=== PATIENT | female | born 1945 | race Caucasian/White ===

== ENCOUNTER 2019-06-19 06:42 | Day surgery (SDC) | payer MEDICARE, OTHER, SELFPAY ==
[2019-06-19 07:33] VITALS: BMI 45.4
--- NOTE | 2019-06-19 07:34 | ANES.PREANES ---
Pre-Anesthetic Assessment Pre-Anesthetic Assessment: Height/Weight: Height 1.5 m Weight 102.058 kg Preop Diagnosis: Hx colon cancer Proposed Procedure: Operation Date: 06/19/19 08:15 Proposed Procedures p Colonoscopy(Not Applicable) - Joseph Martin MD Familial anesthetic complications: No personal or familial hx of trouble with anesthesia Was Beta Johnson taken within 24 hours: Yes Last intake: Sips with meds this morning; last night at 1130 Social: Social History: No alcohol and No tobacco Exam: Pre-Anes Outpt Exam: alert, oriented x 3, clear to auscultation bilaterally and regular rate & rhythm Airway: Submandibular: WNL Cervical ROM: WNL MP: 4 Dentition: Full Pulmonary: Comments: Bronchospasm - uses inhaler 1x/week CV/HEM: CV/HEM: HTN : : Chronic renal Insufficiency Hepatic: Hepatic: None reported GI: Comments: hx colon cancer Metabolic: Metabolic: DM, Hyperlipidemia, Morbid obesity and Thyroid Musc/skel: Musc/skel: None reported Neuropsych: Neuropsych: None reported Anesthetic Plan: ASA status: III Anesthesia: MAC Risk of > 500 ml blood loss (7ml/kg in children): No PFSH Anesthesia PFSH: Medical History (Updated 06/19/19 @ 07:37 by Joseph Martin MD) Adult onset hypothyroidism (Acute) Chronic kidney disease, stage 3 (Acute) Constipation, slow transit (Acute) History of colon cancer (Acute) Hypercholesteremia (Acute) Type 2 diabetes mellitus with hyperglycemia, without long-term current use of insulin (Acute) Surgical History (Updated 06/19/19 @ 07:36 by Joseph Martin MD) History of colonoscopy (Acute) Colon cancer splenic flexure History of hemicolectomy (Acute) Laparoscopic left hemicolectomy 2019 History of hysterectomy (Acute) Family History (Updated 06/18/19 @ 11:10 by Rosa M Javier) Other Cancer Heart disease Hypertension Social History (Updated 06/18/19 @ 11:14 by Rosa M Javier) Smoking and tobacco status: never smoked Second hand smoke exposure: No Smoking risk assessment/counseling performed?: No Alcohol intake: never Caregiver/support person: Yes Lives independently: Yes Household members: spouse Marital status: Data Anesthesia Cardiac Studies: No Data to Display
[2019-06-19] MEDS: sodium chloride 0.9% 1,000 ML 30 ML (07:35)
--- NOTE | 2019-06-19 07:36 | PM.HPUD ---
H&P update H&P Update: DATE OF SURGERY/PROCEDURE: 06/19/19 PLANNED PROCEDURE: Operation Date: 06/19/19 08:15 Proposed Procedures p Colonoscopy(Not Applicable) - Joseph Martin MD Full H&P Perinent History: Medical/Surgical History: Medical History (Updated 06/19/19 @ 07:35 by Joseph Martin MD) Adult onset hypothyroidism (Acute) Chronic kidney disease, stage 3 (Acute) Constipation, slow transit (Acute) History of colon cancer (Acute) Hypercholesteremia (Acute) Type 2 diabetes mellitus with hyperglycemia, without long-term current use of insulin (Acute) Family History: Family History (Updated 06/18/19 @ 11:10 by Rosa M Javier) Other Cancer Heart disease Hypertension Social History: Social History Smoking and tobacco status: never smoked Second hand smoke exposure: No Smoking risk assessment/counseling performed?: No Alcohol intake: never Caregiver/support person: Yes Lives independently: Yes Household members: spouse Marital status: Pertinent Exam Findings: PHYSICAL EXAM: alert and oriented x 3 OTHER PERTINENT EXAM FINDINGS: Abdomen: Soft A&P Assessment and plan (1) History of colon cancer: Plan for surveillance colonoscopy under MAC today Procedure, risks, benefits and alternatives have been discussed with the patient who wishes to proceed with surgery. Status: Acute Code(s): Z85.038 - Personal history of other malignant neoplasm of large intestine
[2019-06-19 07:42] VITALS: BP 153/65; PULSE 78; RESP 18; TEMP 36.3; O2SAT 96
[2019-06-19 07:45] LABS: Glucose Point of Care 156 mg/dL (70-110)
[2019-06-19 08:26] VITALS: BP 128/68; PULSE 57; RESP 18; TEMP 37.2; O2SAT 99
--- NOTE | 2019-06-19 08:28 | ANE.PACU ---
 Inpatient post-anesthesia follow up: Airway intact: Yes Vital signs: Temperature 98.9 F Pulse Rate [Apical ] 57 Respiratory Rate 18 Blood Pressure [Le ft Arm] 128/68 Pulse Oximetry 99 Oxygen Delivery Me thod Nasal Cannula Oxygen Flow Rate 3.0 Fraction of Inspir ed Oxygen Hydration adequate: Yes Nausea and vomiting: No Pain level: 2 Mental status: Baseline
[2019-06-19 08:44] VITALS: BP 135/68; PULSE 54; RESP 18; O2SAT 100
== END 2019-06-19 08:50 | disposition home or self-care (01) ==
PROVIDERS: Family Provider Nurse Practitioner; PCP Nurse Practitioner; Visit Provider Surgery
PROC: 0DJD8ZZ Inspection of Lower Intestinal Tract, Via Natural or Artificial Opening Endoscopic (ICD-10-PCS; CPT 45378; principal; 2019-06-19 08:15)
DX: Z12.11 Encounter for screening for malignant neoplasm of colon (principal); Z85.038 Personal history of other malignant neoplasm of large intestine; D17.79 Benign lipomatous neoplasm of other sites; D12.3 Benign neoplasm of transverse colon; D12.8 Benign neoplasm of rectum; K64.8 Other hemorrhoids; K63.89 Other specified diseases of intestine; E03.9 Hypothyroidism, unspecified; E11.22 Type 2 diabetes mellitus with diabetic chronic kidney disease; N18.9 Chronic kidney disease, unspecified; E78.00 Pure hypercholesterolemia, unspecified; Z82.49 Family history of ischemic heart disease and other diseases of the circulatory system
CPT/HCPCS: 36416; 45380; 45385; 82962; 88305; J2704; J7030

== ENCOUNTER 2019-06-28 09:45 | Outpatient (CLI) | payer MEDICARE, OTHER, SELFPAY ==
--- NOTE | 2019-06-28 09:30 | US_ITS ---
WS: [id number] Thyroid ultrasound, 06/28/2019 Clinical Data: THYROID NODULE Comparison: Thyroid ultrasound, 01/13/2015. Findings: The right lobe of thyroid measures 5.0 cm x 1.6 cm x 1.4 cm. A small nodule in the right thyroid jerrod ures 0.49 x 0.85 x 1.13 cm. The left lobe measures 4.1 cm x 1.4 cm x 1.1 cm. A small nodule in the left mid thyroid measures 0.43 x 0.64 x 0.76 cm. The isthmus measured 0.2 mm. The echotexture of the thyroid is uniform except for scattered small cysts and nodules. US/US thyroid [id number] Impression: Multinodular goiter unchanged.
== END 2019-06-28 09:46 | disposition home or self-care (01) ==
LOC: RAD 09:46
PROVIDERS: Family Provider Nurse Practitioner; PCP Nurse Practitioner; Visit Provider Nurse Practitioner
DX: E04.2 Nontoxic multinodular goiter (principal)
CPT/HCPCS: 76536

== ENCOUNTER → 2019-08-16 13:22 | Outpatient (BNVA) | payer MEDICARE, OTHER, SELFPAY | PROVIDERS: Family Provider Nurse Practitioner; PCP Nurse Practitioner; Visit Provider Nurse Practitioner | DX: E11.65 Type 2 diabetes mellitus with hyperglycemia (principal); E03.8 Other specified hypothyroidism | CPT/HCPCS: 80053; 80061; 82044; 83036; 84443 ==

== ENCOUNTER → 2019-11-14 11:17 | Outpatient (BNVA) | payer MEDICARE, OTHER, SELFPAY | PROVIDERS: Family Provider Nurse Practitioner; PCP Nurse Practitioner; Visit Provider Nurse Practitioner | DX: E11.65 Type 2 diabetes mellitus with hyperglycemia (principal); I10 Essential (primary) hypertension; E03.8 Other specified hypothyroidism; E78.00 Pure hypercholesterolemia, unspecified | CPT/HCPCS: 80053; 83036 ==

== ENCOUNTER → 2020-02-13 11:27 | Outpatient (BNVA) | payer MEDICARE, OTHER, SELFPAY | PROVIDERS: Family Provider Nurse Practitioner; PCP Nurse Practitioner; Visit Provider Nurse Practitioner | DX: E11.65 Type 2 diabetes mellitus with hyperglycemia (principal); E03.8 Other specified hypothyroidism; I10 Essential (primary) hypertension | CPT/HCPCS: 80053; 81000; 83036; 84443 ==

== ENCOUNTER 2020-05-07 08:45 | Outpatient (CLI) | payer MEDICARE, OTHER, SELFPAY ==
[2020-05-07] MEDS: iohexol 300 mg/mL 50 mL Btl PO (10:06)
[2020-05-07 10:14] LABS: Blood Urea Nitrogen 14 mg/dL (8-23)
[2020-05-07] MEDS: iohexol 300 mg/mL 100 mL Btl IV (10:21)
--- NOTE | 2020-05-07 10:30 | CT_ITS ---
WS: [id number] CT ABDOMEN PELVIS TECHNIQUE: Contrast-enhanced CT of the abdomen and pelvis with coronal and sagittal reformatted image s. CLINICAL INFORMATION: history of colon cancer COMPARISON: CT 9 18,019 DLP: 1134.[address] scans at [facility] use at least one of these dose optimization techniques: automat ed exposure control; mA and/or kV adjustment per patient size (includes targeted exams where dose is matched to clinical indication); or iterative reconstruction. FINDINGS: Prior hysterectomy. Prior postoperative changes descending colon resection. Anastomosis in the left u pper quadrant. Diffuse fatty infiltration the liver. No evidence of metastatic disease in the abdomen or pelvis. Normal portal vein and splenic vein. Normal gallbladder. Splenic granulomas. Fatty atrophy of the rai creas. Calcified granulomas in the lung bases. Normal caliber abdominal aorta. Adrenal glands are nor mal. Normal renal parenchymal enhancement. No hydronephrosis. Small left renal cyst. No evidence of small or large bowel obstruction. No periaortic or retroperitoneal lymphadenopathy. No pelvic or inguinal lymphadenopathy. Small fat-containing supraumbilical hernia. No herniated bowel. CT/CT abdomen pelvis w con* [id number] IMPRESSION: 1. No evidence of metastatic disease in the abdomen or pelvis. 2. Prior postoperative changes left colon resection. Anastomosis in the left u pper quadrant. 3. No abdominal or pelvic lymphadenopathy. 4. No evidence of small or large bowel obstruction. 5. Prior hysterectomy. 6. Diffuse fatty infiltration liver.
== END 2020-05-07 08:46 | disposition home or self-care (01) ==
LOC: RADWPI 08:51
PROVIDERS: PCP Nurse Practitioner; Visit Provider Surgery
DX: Z85.038 Personal history of other malignant neoplasm of large intestine (principal); K76.0 Fatty (change of) liver, not elsewhere classified; K63.89 Other specified diseases of intestine
CPT/HCPCS: 74177; 82565; 84520; Q9967

== ENCOUNTER 2020-05-07 11:28 | Outpatient (CLI) | payer MEDICARE, OTHER, SELFPAY ==
[2020-05-07 12:34] LABS: Carcinoembryonic Antigen 1.3 ng/mL (0.0-4.7)
== END 2020-05-07 11:29 | disposition home or self-care (01) ==
PROVIDERS: PCP Nurse Practitioner; Visit Provider Surgery
DX: Z85.038 Personal history of other malignant neoplasm of large intestine (principal); K76.0 Fatty (change of) liver, not elsewhere classified; K63.89 Other specified diseases of intestine
CPT/HCPCS: 36415; 82378

== ENCOUNTER → 2020-05-15 12:16 | Outpatient (BNVA) | payer MEDICARE, OTHER, SELFPAY | PROVIDERS: PCP Nurse Practitioner; Visit Provider Nurse Practitioner | DX: E11.65 Type 2 diabetes mellitus with hyperglycemia (principal); I10 Essential (primary) hypertension; E03.8 Other specified hypothyroidism; Z23 Encounter for immunization; E78.00 Pure hypercholesterolemia, unspecified | CPT/HCPCS: 80053; 83036 ==

== ENCOUNTER → 2020-08-14 12:02 | Outpatient (BNVA) | payer MEDICARE, OTHER, SELFPAY | PROVIDERS: PCP Nurse Practitioner; Visit Provider Nurse Practitioner | DX: E11.65 Type 2 diabetes mellitus with hyperglycemia (principal); I10 Essential (primary) hypertension; E03.8 Other specified hypothyroidism; Z23 Encounter for immunization; E78.00 Pure hypercholesterolemia, unspecified; F41.9 Anxiety disorder, unspecified | CPT/HCPCS: 80053; 80061; 83036; 84443 ==

== ENCOUNTER → 2020-11-21 10:21 | Outpatient (BNVA) | payer MEDICARE, OTHER, SELFPAY | PROVIDERS: PCP Nurse Practitioner; Visit Provider Nurse Practitioner | DX: E11.65 Type 2 diabetes mellitus with hyperglycemia (principal); I10 Essential (primary) hypertension; E03.8 Other specified hypothyroidism; F41.9 Anxiety disorder, unspecified; E78.00 Pure hypercholesterolemia, unspecified; M54.5 Low back pain | CPT/HCPCS: 80053; 83036 ==

== ENCOUNTER 2020-12-14 22:56 | Emergency (ER) | payer MEDICARE, OTHER, SELFPAY ==
[2020-12-14 22:57] VITALS: BP 166/83; PULSE 72; RESP 18; TEMP 36.9; O2SAT 97; BMI 43.4
--- NOTE | 2020-12-15 02:47 | XRR_ITS ---
PROCEDURE INFORMATION: Exam: XR Thoracic Spine Exam date and time: 12/15/2020 2:47 AM Age: 75 years old Clinical indication: Pain in thoracic spine; Additional info: Right thoracic pain TECHNIQUE: Imaging protocol: XR of the thoracic spine. Views: 3 views. COMPARISON: CT abdomen pelvis w con* [id number] 05/07/2020 10:19 AM FINDINGS: Bones/joints: The pedicles are intact. There is normal vertebral body alignment. There are normal vertebral body heights. Large flowing endplate osteophytes are present in the lower thoracic spine. No fracture. There is mild, diffuse disc space narrowing. Soft tissues: Unremarkable. XR/XR thoracic spine 3V* [id number] IMPRESSION: 1. No fracture. 2. Mild degenerative disc disease.
--- NOTE | 2020-12-15 02:47 | XRR_ITS ---
PROCEDURE INFORMATION: Exam: XR Chest Exam date and time: 12/15/2020 2:47 AM Age: 75 years old Clinical indication: Pain; Other: Back, right; Additional info: Back pain TECHNIQUE: Imaging protocol: XR of the chest. Views: 1 view. COMPARISON: CR Chest 2 views* [id number] 04/17/2015 11:47 AM FINDINGS: Lungs: See Heart/Mediastinum finding. Pleural spaces: Unremarkable. No pleural effusion. No pneumothorax. Heart/Mediastinum: Calcified lymph nodes are present, secondary to prior granulomatous disease. Bones/joints: Unremarkable. XR/XR chest 1V portable [id number] IMPRESSION: No acute disease.
--- NOTE | 2020-12-15 02:48 | ECG_ITS ---
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
[2020-12-15 03:02] VITALS: BP 146/82
[2020-12-15 03:50] LABS: Add Urine Microscopic? YES; Bilirubin Urine Neg (Negative); Blood Urine Neg (Negative); Glucose Urine UA Norm (Normal); Ketones Urine 1+ (Negative); Leukocyte Esterase Urine Trace (Negative); Nitrate Urine Negative (Negative); Protein Urine Neg (Negative); Specific Gravity, Urine 1.025 (1.005-1.030); Urine Appearance Clear (CLEAR); Urine Color Yellow (Yellow); Urobilinogen Urine 4 mg/dL (Negative); pH Urine 5 (5-7)
[2020-12-15 03:51] LABS: Bacteria Urine 3+ /hpf; RBC Urine 0-4 /hpf (0-2)
[2020-12-15] MEDS: ondansetron 2 mg/ML SDV 2 mL 4 MG IVP (04:21)
[2020-12-15 04:42] LABS: Alanine Aminotransferase 51 U/L (0-33); Albumin Level 3.9 g/dL (3.5-5.2); Alkaline Phosphatase 310 IU/L (35-105); Anion Gap 14.1 (5-19); Aspartate Amino Transferase 126 U/L (0-32); Blood Urea Nitrogen 16 mg/dL (8-23); Carbon Dioxide 28 mmol/L (22-29); Chloride 102 mmol/L (98-107); Creatine Phosphokinase 38 U/L (26-192); Globulin 2.1 g/dL (1.3-4.6); Glucose 145 mg/dL (65-115); Lipase 22 U/L (13-60); Osmolality Calculated 294 mOsm/kg (285-295); Potassium 4.1 mmol/L (3.5-5.1); Sodium 140 mmol/L (136-145); Total Bilirubin 0.6 mg/dL (0.15-1.2)
[2020-12-15 04:43] LABS: Basophils % 0.3 %; Eosinophils % 0.4 %; Hemoglobin 12.4 g/dL (11.5-15.3); Lymphocytes # 2.2 10^3/uL (0.8-4.8); Lymphocytes % 22.6 %; Mean Corpuscular Volume 90.3 fL (81-99); Mean Platelet Volume 11.2 fL (7.4-10.4); Monocytes # 0.9 10^3/uL (0.2-0.9); Neutrophils # 6.41 10^3/uL (1.8-7.7); Neutrophils % 67.5 %; Nucleated Red Blood Cells % 0 %; Platelet Count 290 10^3/cmm (130-400); Red Blood Count 4.43 10^6/uL (4.1-5.3); Red Cell Distribution Width 13.9 % (12.1-15.1); White Blood Count 9.5 10^3/uL (4.0-10.0)
[2020-12-15 04:53] LABS: Troponin(5th) Baseline 6 ng/L (0-10)
--- NOTE | 2020-12-15 04:55 | CTR_ITS ---
PROCEDURE INFORMATION: Exam: CTA Chest With Contrast Exam date and time: 12/15/2020 4:55 AM Age: 75 years old Clinical indication: Other: RT upper back pain; Right-sided; Prior surgery; Surgery date: 6+ months; Surgery type: Hyst, colon; Additional info: Cp, epigastric pain, nausea TECHNIQUE: Imaging protocol: Computed tomographic angiography of the chest with contrast. 3D rendering (Not supervised by radiologist): MIP and/or 3D reconstructed images were created by the technologist. Radiation optimization: All CT scans at this facility use at least one of these dose optimization techniques: automated exposure control; mA and/or kV adjustment per patient size (includes targeted exams where dose is matched to clinical indication); or iterative reconstruction. Contrast material: OMNI 350; Contrast volume: 95 ml; Contrast route: INTRAVENOUS (IV); COMPARISON: CR (CHEST, ) 12/15/2020 3:29 AM RADIATION DOSE METRICS: Total DLP (mGy-cm): 1971.68 FINDINGS: Pulmonary arteries: No pulmonary embolism. Aorta: No aortic aneurysm. Lungs: Unremarkable. No consolidation. No masses. Pleural spaces: Unremarkable. No pneumothorax. No pleural effusion. Heart: Atherosclerotic coronary artery calcifications are present. Lymph nodes: Calcified lymph nodes are present, secondary to prior granulomatous disease. Bones/joints: Unremarkable. No acute fracture. Soft tissues: Unremarkable. IMPRESSION: 1. No cause for acute pain is identified. 2. No pulmonary embolism. 3. Atherosclerotic disease of the coronary arteries. PROCEDURE INFORMATION: Exam: CT Abdomen And Pelvis With Contrast Exam date and time: 12/15/2020 4:55 AM Age: 75 years old Clinical indication: Other: RT upper back pain; Right-sided; Prior surgery; Surgery date: 6+ months; Surgery type: Hyst, colon; Additional info: Cp, epigastric pain, nausea TECHNIQUE: Imaging protocol: Computed tomography of the abdomen and pelvis with contrast. Radiation optimization: All CT scans at this facility use at least one of these dose optimization techniques: automated exposure control; mA and/or kV adjustment per patient size (includes targeted exams where dose is matched to clinical indication); or iterative reconstruction. Contrast material: OMNI 350; Contrast volume: 95 ml; Contrast route: INTRAVENOUS (IV); COMPARISON: CR (CHEST, ) 12/15/2020 3:29 AM RADIATION DOSE METRICS: Total DLP (mGy-cm): 1971.68 FINDINGS: Lungs: The lung bases are clear. No effusion Liver: Normal. No mass. Gallbladder and bile ducts: No wall thickening, pericholecystic fluid or stones. Pancreas: Normal. No ductal dilation. Spleen: There are multiple calcified splenic granulomata . Adrenal glands: Normal. No mass. Kidneys and ureters: 1.5 cm left renal cyst. Stomach and bowel: Unremarkable. No obstruction. No mucosal thickening. Appendix: No evidence of appendicitis. Intraperitoneal space: Unremarkable. No free air. No significant fluid collection. Vasculature: Mild atherosclerotic disease of the aorta without aneurysm. Lymph nodes: Unremarkable. No enlarged lymph nodes. Urinary bladder: Unremarkable as visualized. Reproductive: Unremarkable as visualized. Bones/joints: Unremarkable. No acute fracture. Soft tissues: Hernia mesh anchors are present in the region of the symphysis pubis. There is a fat containing ventral hernia. CT/CT angio chest w abd pel w con IMPRESSION: 1. No cause for acute pain is identified. 2. 1.5 cm left renal cyst. 3. Mild atherosclerotic disease of the aorta without aneurysm. COMMENTS: Consistent with the [place] [employer]'s Incidental Findings Committee white paper (J Am Nat Radiol 2018): Any incidental renal lesion less than 1 cm or classified as too small to characterize, or any incidental cystic renal lesion characterized as simple-appearing, is likely benign. No follow-up imaging is recommended for these lesions per consensus recommendations based on imaging criteria. Radiation Dose CTDIVOL = (mGy): DLP = 1971.68~1971.68 (mGy-cm)
[2020-12-15] MEDS: iohexol 350 mg/mL 100 mL Btl IV (05:39)
[2020-12-15 05:56] VITALS: RESP 18; O2SAT 97
[2020-12-15] MEDS: morphine 4 mg/mL SDV 1 mL IVP (05:56)
--- NOTE | 2020-12-15 06:17 | ECG_ITS ---
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
[2020-12-15 06:58] VITALS: BP 190/91; PULSE 69; RESP 18; O2SAT 99
--- NOTE | 2020-12-15 07:06 | ED_ITS ---
HPI - Back Pain/Injury General: Chief Complaint: Back Pain/Injury Stated Complaint: BACK PAIN INTO RIGHT ARM Time Seen by Provider: 12/15/20 02:31 History of Present Illness: HPI Narrative: 75-year-old female with pain to her right mid back since 7 days ago. She said the pain is gotten worse. She had some old hydrocodone at home she had leftover from a surgery in 2018. She took these without any improvement. No fever. No cough. No real trouble breathing. The pain seems to radiate into her right arm and make it ache. MD elicited complaint: back pain Onset (ago): day(s) Timing: constant and progressively worsening Similar Symptoms Previously: No Quality: sharp, stabbing and aching Radiation: none Exacerbating factors: movement and deep breaths Relieving factors: none Associated symptoms: Reports fatigue; Deny abdominal pain, chills, difficulty walking, dysuria, fever(s), hematuria or nausea Treatments prior to arrival: cold therapy Review of Systems Const: Reports: fatigue; Denies: fever(s) or chills Eyes: Denies: change in vision ENMT: Denies: odynophagia, swelling of lips/tongue, dental pain or sinus pain Card: Reports: chest pain; Denies: palpitations, irregular heart rhythm, edema, swelling of feet/ankles, dyspnea on exertion or orthopnea Resp: Denies: dyspnea, productive cough, non-productive cough or wheezing GI: Denies: abdominal pain or nausea : Denies: dysuria or hematuria Musc: Reports: back pain; Denies: neck pain, joint redness or joint warmth Skin/Breast: Denies: rash, pruritus or erythema Neuro: Denies: difficulty walking Psych: Denies: anxiety PFSH ED PFSH: Medical History Adult onset hypothyroidism Anxiety Chronic kidney disease, stage 3 Constipation, slow transit Enrolled in chronic care management Essential (primary) hypertension History of colon cancer CT abdomen/pelvis , [facility] Apr 2020 History of colon polyps Follow-up colonoscopy in 3 years Hypercholesteremia Hypokalemia Seasonal allergies Type 2 diabetes mellitus with hyperglycemia, without long-term current use of insulin Surgical History History of colonoscopy Colon cancer splenic flexure 2018 06/2019: Cecum: Normal Ascending colon: 1 cm submucous mass consistent with a lipoma Transverse colon: 5 mm sessile polyp x4 removed with cold biopsy forceps At the colocolic anastomosis status post left hemicolectomy there was polypoid mucosa which was removed using a hot snare Sigmoid colon: Normal Rectum: 5 mm sessile polyp removed with cold biopsy forceps, internal hemorrhoids on retroflexion BERNADETTE: Internal hemorrhoids Follow-up colonoscopy 1 year History of hemicolectomy Laparoscopic left hemicolectomy 2019 History of hysterectomy Family History Other Cancer Heart disease Hypertension Social History Smoking and tobacco status: never smoked Second hand smoke exposure: No Smoking risk assessment/counseling performed?: No Alcohol intake: never Desire information about alcohol rehabilitation?: No Counseling given: No Desire information about substance/drug rehabilitation?: No Counseling given: No Adopted: No Caregiver/support person: No Lives independently: Yes Household members: spouse Housing: House Marital status: Number of children: 2 service: No Current occupational status: unemployed and retired History of recent travel: No Leisure activites: other Leisure activities details: Camping Current gender identity: Female Physical Exam Const: COMMON NORMALS: alert GENERAL APPEARANCE: frail appearing HENMT: COMMON NORMALS: normocephalic and Normal external nose present HEAD & SCALP: normocephalic FACE & SINUS: normal facial exam NOSE: Normal external nose present Chest: COMMONS NORMALS: normal inspection of the chest Resp: COMMON NORMALS: normal respiratory effort, No use of accessory muscles and clear to auscultation bilaterally AUSCULTATION: clear to auscultation bilaterally Cardio: COMMON NORMALS: regular rate and regular rhythm RATE: regular rate RHYTHM: regular rhythm GI: COMMON NORMALS: Normal to inspection, nondistended, normoactive bowel sounds present, Soft to palpation and no masses PALPATION: Yes Soft to palpation Back/Pelvis: OTHER: Examination revealed palpable and reproducible tenderness to the mid thoracic spine on the right in the paraspinal musculature along the medial scapular border at the lower part around T7. There is no increased pain on axial loading of the neck. There is no deformity. Neuro: SENSORIUM/ORIENTATION: Yes alert Course Vital Signs: Vital signs: Vital Signs Temperature 98.4 F 12/14/20 22:57 Pulse Rate 69 12/15/20 06:58 Respiratory Rate 18 12/15/20 06:58 Blood Pressure 190/91 12/15/20 06:58 Pulse Oximetry 99 12/15/20 06:58 MDM - Back Pain/Injury MDM Narrative: Medical decision making narrative: CBC is normal. BMP is essentially normal. Liver enzymes are mildly elevated, which is new for the patient. D-dimer is 600. Because of these things, CTA of the chest was ordered with abdomen pelvis as a follow-through. Neither 1 reveals a source of her pain. We will treat as musculoskeletal troponin was 6. Lab Data: Labs: Lab Results 12/15/20 12/15/20 12/15/20 Range/Units 03:10 04:11 04:11 WBC 9.5 (4.0-10.0) 10^3/ uL RBC 4.43 (4.1-5.3) 10^6/u L Hgb 12.4 (11.5-15.3) g/dL Hct 40.0 (37.0-47.0) % MCV 90.3 (81-99) fL MCH 28.0 (28.0-34.0) pg MCHC 31.0 (30.0-36.0) g/dL RDW 13.9 (12.1-15.1) % Plt Count 290 (130-400) 10^3/c mm MPV 11.2 H (7.4-10.4) fL Neut % (Auto) 67.5 % Lymph % (Auto) 22.6 % [place] % (Auto) 9.0 % Eos % (Auto) 0.4 % Baso % (Auto) 0.3 % Neut # (Auto) 6.41 (1.8-7.7) 10^3/u L Lymph # (Auto) 2.2 (0.8-4.8) 10^3/u L [place] # (Auto) 0.9 (0.2-0.9) 10^3/u L Eos # (Auto) 0.0 (0.0-0.8) 10^3/u L Baso # (Auto) 0.0 (0.0-0.1) 10^3/u L Nucleated RBC % (a uto) 0 % Nucleated RBCs # 0.0 /100WBC D-Dimer 0.60 H (0-0.59) ug/mIFE U Sodium (136-145) mmol/L Potassium (3.5-5.1) mmol/L Chloride (98-107) mmol/L Carbon Dioxide (22-29) mmol/L Anion Gap (5-19) BUN (8-23) mg/dL Creatinine (0.5-0.9) mg/dL GFR Calculation Glucose (65-115) mg/dL Calculated Osmolal ity (285-295) mOsm/k g Calcium (8.5-10.5) mg/dL Total Bilirubin (0.15-1.2) mg/dL AST (0-32) U/L ALT (0-33) U/L Alkaline Phosphata se (35-105) IU/L Creatine Kinase (26-192) U/L Troponin T Baselin e (0-10) ng/L Total Protein (6.6-8.7) g/dL Albumin (3.5-5.2) g/dL Globulin (1.3-4.6) g/dL Lipase (13-60) U/L Urine Color Yellow (Yellow) Urine Appearance Clear (CLEAR) Urine pH 5 (5-7) Ur Specific Gravit y 1.025 (1.005-1.030) Urine Protein Neg (Negative) Urine Glucose (UA) Norm (Normal) Urine Ketones 1+ H (Negative) Urine Blood Neg (Negative) Urine Nitrate Negative (Negative) Urine Bilirubin Neg (Negative) Urine Urobilinogen 4 H (Negative) mg/dL Ur Leukocyte Celina ase Trace H (Negative) Urine RBC 0-4 H (0-2) /hpf Urine WBC 10-15 H (0-5) /hpf Ur Squamous Epith Cells 5-10 H (0-5) /hpf Amorphous Sediment Not Reportable Urine Bacteria 3+ H (NONE) /hpf 12/15/20 12/15/20 Range/Units 04:11 04:11 WBC (4.0-10.0) 10^3/ uL RBC (4.1-5.3) 10^6/u L Hgb (11.5-15.3) g/dL Hct (37.0-47.0) % MCV (81-99) fL MCH (28.0-34.0) pg MCHC (30.0-36.0) g/dL RDW (12.1-15.1) % Plt Count (130-400) 10^3/c mm MPV (7.4-10.4) fL Neut % (Auto) % Lymph % (Auto) % [place] % (Auto) % Eos % (Auto) % Baso % (Auto) % Neut # (Auto) (1.8-7.7) 10^3/u L Lymph # (Auto) (0.8-4.8) 10^3/u L [place] # (Auto) (0.2-0.9) 10^3/u L Eos # (Auto) (0.0-0.8) 10^3/u L Baso # (Auto) (0.0-0.1) 10^3/u L Nucleated RBC % (a uto) % Nucleated RBCs # /100WBC D-Dimer (0-0.59) ug/mIFE U Sodium 140 (136-145) mmol/L Potassium 4.1 (3.5-5.1) mmol/L Chloride 102 (98-107) mmol/L Carbon Dioxide 28 (22-29) mmol/L Anion Gap 14.1 (5-19) BUN 16 (8-23) mg/dL Creatinine 0.7 (0.5-0.9) mg/dL GFR Calculation Not Reportable Glucose 145 H (65-115) mg/dL Calculated Osmolal ity 294 (285-295) mOsm/k g Calcium 9.0 (8.5-10.5) mg/dL Total Bilirubin 0.6 (0.15-1.2) mg/dL AST 126 H (0-32) U/L ALT 51 H (0-33) U/L Alkaline Phosphata se 310 H (35-105) IU/L Creatine Kinase 38 (26-192) U/L Troponin T Baselin e 6 (0-10) ng/L Total Protein 6.0 L (6.6-8.7) g/dL Albumin 3.9 (3.5-5.2) g/dL Globulin 2.1 (1.3-4.6) g/dL Lipase 22 (13-60) U/L Urine Color (Yellow) Urine Appearance (CLEAR) Urine pH (5-7) Ur Specific Gravit y (1.005-1.030) Urine Protein (Negative) Urine Glucose (UA) (Normal) Urine Ketones (Negative) Urine Blood (Negative) Urine Nitrate (Negative) Urine Bilirubin (Negative) Urine Urobilinogen (Negative) mg/dL Ur Leukocyte Celina ase (Negative) Urine RBC (0-2) /hpf Urine WBC (0-5) /hpf Ur Squamous Epith Cells (0-5) /hpf Amorphous Sediment Urine Bacteria (NONE) /hpf Discharge Plan Discharge Patient Disposition: Home Clinical Impression: Thoracic back pain Qualifiers: Chronicity: acute Back pain laterality: right Qualified Code(s): M54.6 - Pain in thoracic spine Condition: Stable Prescriptions: New ketorolac 10 mg tablet 10 mg PO TID PRN (Reason: pain) Qty: 10 RF: 0 Percocet 7.5-325 mg tablet 1 tab PO Q6H PRN (Reason: pain) Qty: 10 RF: 0 No Action Trulicity 0.75 mg/0.5 mL pen injector 0.75 mg SUBCUT .weekly Qty: 2 RF: 1 levothyroxine 50 mcg tablet 50 mcg PO DAILY Qty: 90 RF: 0 losartan 50 mg tablet 50 mg PO DAILY Qty: 90 RF: 0 metformin 500 mg tablet extended release 24 hr 1,000 mg PO DAILY Qty: 180 RF: 0 metoprolol tartrate 50 mg tablet 50 mg PO BID Qty: 180 RF: 0 potassium chloride 10 mEq tablet extended release 10 meq PO DAILY Qty: 90 RF: 0 rosuvastatin [Crestor] 40 mg tablet 40 mg PO DAILY Qty: 90 RF: 0 venlafaxine [Effexor XR] 75 mg capsule,extended release 24hr 75 mg PO QAM Qty: 90 RF: 0 furosemide 20 mg tablet 40 mg PO DAILY PRN (Reason: edema) Qty: 180 RF: 0 aspirin 81 mg tablet,delayed release (DR/EC) 81 mg PO DAILY RF: 0 albuterol sulfate [Ventolin HFA] 90 mcg/actuation HFA aerosol inhaler 2 inh INHALATION TID RF: 0 cholecalciferol (vitamin D3) 1,000 unit Capsule 1,000 unit PO DAILY RF: 0 Centrum Silver 1 tab PO DAILY RF: 0 Fish Oil 1,000 mg PO BID RF: 0 Zyrtec 10 mg PO DAILY RF: 0 Discharge Orders: Discharge ED (Routine); Ordered 12/15/20 Ordered By: Salas Singleton Referrals: Andrzej Grey, CUSTOMER COMPLAINT SERVICE SUPERVISOR-C [Primary Care Provider] - 1-3 days Patient Instructions: Back Pain (ED) Activity Restrictions/Additional Instructions: Return for fever greater than 100, shortness of breath, change in mental status, worsening pain despite treatment, other concerning symptoms peer Coding Level of Care Code ED 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
== END 2020-12-15 07:01 | disposition home or self-care (01) ==
PROVIDERS: Emergency Provider Emergency Medicine; PCP Nurse Practitioner
DX: M54.6 Pain in thoracic spine (principal); Z79.84 Long term (current) use of oral hypoglycemic drugs; Z79.82 Long term (current) use of aspirin
CPT/HCPCS: 71045; 71275; 72072; 74177; 80053; 81001; 82550; 83690; 84484; 85025; 85378; 93005; 96374; 96375; 99284; J2270; J2405; Q9967

== ENCOUNTER → 2021-02-13 11:05 | Outpatient (BNVA) | payer MEDICARE, OTHER, SELFPAY | PROVIDERS: PCP Nurse Practitioner; Visit Provider Nurse Practitioner | DX: I10 Essential (primary) hypertension (principal); E03.8 Other specified hypothyroidism; E11.65 Type 2 diabetes mellitus with hyperglycemia; F41.9 Anxiety disorder, unspecified; E78.00 Pure hypercholesterolemia, unspecified; E55.9 Vitamin D deficiency, unspecified | CPT/HCPCS: 80053; 80061; 81000; 82306; 83036; 84443 ==

== ENCOUNTER → 2021-05-13 11:49 | Outpatient (BNVA) | payer MEDICARE, OTHER, SELFPAY | PROVIDERS: PCP Nurse Practitioner; Visit Provider Nurse Practitioner | DX: E11.65 Type 2 diabetes mellitus with hyperglycemia (principal) | CPT/HCPCS: 80053; 83036 ==

== ENCOUNTER → 2021-08-05 08:22 | Outpatient (BNVA) | payer MEDICARE, OTHER, SELFPAY | PROVIDERS: PCP Nurse Practitioner; Visit Provider Nurse Practitioner | DX: E11.65 Type 2 diabetes mellitus with hyperglycemia (principal); I10 Essential (primary) hypertension | CPT/HCPCS: 80053; 80061; 81000; 83036; 84443 ==

== ENCOUNTER → 2021-09-02 11:17 | Outpatient (BNVA) | payer MEDICARE, OTHER, SELFPAY | PROVIDERS: PCP Nurse Practitioner; Visit Provider Nurse Practitioner Family | DX: R05.9 Cough, unspecified (principal); R06.02 Shortness of breath; J98.8 Other specified respiratory disorders | CPT/HCPCS: 71046; 87635; 87801 ==

== ENCOUNTER 2021-09-10 10:28 | Emergency (ER) | payer MEDICARE, OTHER, SELFPAY ==
[2021-09-10 10:37] VITALS: BP 133/84; PULSE 70; RESP 14; TEMP 36.6; O2SAT 98; BMI 42.6
[2021-09-10 10:43] VITALS: RESP 16; O2SAT 98
--- NOTE | 2021-09-10 10:55 | ED_ITS ---
HPI - Fall General: Chief Complaint: Fall Stated Complaint: Fell and Hit head, Time Seen by Provider: 09/10/21 10:44 Source: patient and family Mode of arrival: ambulatory Limitations: no limitations History of Present Illness: Patient is a nice 76-year-old female who presents to ED today along with her for evaluation following a fall/head injury. Patient states 2 days ago she was in her crafting chair when it accidentally overturned causing her to fall backwards and struck the posterior aspect of her head. No LOC. Patient is not on anticoagulation. She does state afterwards she felt a little dizzy but states this has improved. She did later develop a headache but states this is slowly improved as well. Patient states she sought medical evaluation today because she still feels a little swimmy . She states she is able to ambulate just fine without assistance. states she was able to drive herself to the ED. she is not having any numbness, tingling, weakness to her extremities. No facial drooping or slurred speech. No visual changes. states mental status has been normal at home. She also does complain of a little bit of neck pain. No other injuries or complaints at this time. MD complaint: fall Onset (ago): day(s) Fall from: chair Fall witnessed: no Place fall occurred: home Loss of consciousness: None Prolonged down time: no Symptoms prior to fall: none Context: tripped/slipped (chair overtipped) Location of injury: head and neck Associated symptoms-after fall: Reports headache(s) (improved since fall) and neck pain; Denies chest pain, confusion, difficulty walking, lightheadedness or vertigo Review of Systems Const: Denies: fever(s), chills, body aches, fatigue or malaise Eyes: Denies: change in vision, blurry vision, floaters or seeing flashes Card: Denies: chest pain, palpitations, lightheadedness, syncope or pre- syncope Resp: Denies: dyspnea GI: Denies: nausea or vomiting Musc: Reports: neck pain; Denies: back pain, extremity pain or joint pain Skin/Breast: Denies: rash Neuro: Reports: headache(s) (improved since fall); Denies: numbness in extremities, weakness in extremities, sensory changes, difficulty walking, frequent falls, vertigo, confusion, behavioral changes, Slurred speech present, difficulty communicating thoughts or seizure-like activity PFSH ED PFSH: Medical History Adult onset hypothyroidism Anxiety Chronic kidney disease, stage 3 Constipation, slow transit Enrolled in chronic care management Essential (primary) hypertension History of colon cancer CT abdomen/pelvis , CEA Apr 2020 History of colon polyps Follow-up colonoscopy in 3 years Hypercholesteremia Hypokalemia Seasonal allergies Type 2 diabetes mellitus with hyperglycemia, without long-term current use of insulin Surgical History History of colonoscopy Colon cancer splenic flexure 06/2019: Cecum: Normal Ascending colon: 1 cm submucous mass consistent with a lipoma Transverse colon: 5 mm sessile polyp x4 removed with cold biopsy forceps At the colocolic anastomosis status post left hemicolectomy there was polypoid mucosa which was removed using a hot snare Sigmoid colon: Normal Rectum: 5 mm sessile polyp removed with cold biopsy forceps, internal hemorrhoids on retroflexion BERNADETTE: Internal hemorrhoids Follow-up colonoscopy 1 year History of hemicolectomy Laparoscopic left hemicolectomy 2018 History of hysterectomy Family History Other Cancer Heart disease Hypertension Social History Smoking and tobacco status: never smoked Second hand smoke exposure: No Smoking risk assessment/counseling performed?: No Alcohol intake: never Desire information about alcohol rehabilitation?: No Counseling given: No Desire information about substance/drug rehabilitation?: No Counseling given: No Adopted: No Caregiver/support person: No Lives independently: Yes Household members: spouse Housing: House Marital status: Number of children: 2 service: No Current occupational status: unemployed and retired History of recent travel: No Leisure activites: other Leisure activities details: Camping Current gender identity: Female Physical Exam Const: COMMON NORMALS: no acute distress, patient oriented x3, no limitations and alert GENERAL APPEARANCE: cooperative NUTRITIONAL APPEARANCE: overwei ght ORIENTATION/CONSCIOUSNESS: Yes awake, Yes oriented to person, Yes oriented to place and Yes oriented to time HENMT: COMMON NORMALS: normocephalic and atraumatic HEAD & SCALP: normal to inspection, normocephalic and atraumatic FACE & SINUS: normal facial exam Eye: GENERAL EYE: appearance normal, both eyes and all related structures Neck/C-Spine: COMMON NORMALS: full ROM CERVICAL SPINE: Yes cervical ROM normal, No pain with cervical ROM, No Cervical spine tenderness, No step off deformity and No Paracervical muscle tenderness Chest: COMMONS NORMALS: normal inspection of the chest and normal palpation of entire chest wall Resp: COMMON NORMALS: normal respiratory effort and clear to auscultation bilaterally AUSCULTATION: clear to auscultation bilaterally Cardio: COMMON NORMALS: regular rate and regular rhythm RATE: regular rate RHYTHM: regular rhythm GI: COMMON NORMALS: Normal to inspection, nondistended, normoactive bowel sounds present, Soft to palpation and non-tender PALPATION: Yes Soft to palpation Back/Pelvis: COMMON NORMALS: thoracic and lumbar spine normal to inspection, no thoracic nor lumbar tenderness and thoraco-lumbar ROM normal Extremity: COMMON NORMALS: normal to inspection and full ROM GENERAL: Yes normal exam except as noted Neuro: LILA COMA SCALE: document GCS findings Lila coma scale eye opening: Spontaneous Lila coma scale verbal response: Orientated Lila coma scale motor response: Obey commands [place] coma scale total score: 15 COMMON NORMALS: patient oriented x3, CN's II-XII intact bilaterally, moves all extremities, no focal motor deficits, no sensory deficits noted and gait normal SENSORIUM/ORIENTATION: Yes alert, Yes oriented to person, Yes oriented to place and Yes oriented to time Skin: COMMON NORMALS: no rashes or lesions noted GENERAL SKIN EXAM: no rashes or lesions noted Course Vital Signs: Vital signs: Vital Signs Temperature 97.8 F 09/10/21 10:37 Pulse Rate 70 09/10/21 10:37 Respiratory Rate 14 09/10/21 10:37 Blood Pressure 133/84 09/10/21 10:37 Pulse Oximetry 98 09/10/21 10:37 MDM - Fall Medical Decision Making CT head/cervical spine negative. No acute neurological deficits here. Patient will be allowed discharge with return precautions. Lab Data Radiology Impressions Cervical Spine CT 09/10/21 10:55 IMPRESSION: No acute cervical spine fracture. Moderate spondylitic changes at C6-7 mild encroachment on the ventral thecal sac and foramina due to osteophyte disease. Head CT 09/10/21 10:55 IMPRESSION: 1. No acute intracranial hemorrhage or edema. 2. Mild atrophy and small vessel ischemic disease. 3. No skull fracture. Discharge Plan Discharge Patient Disposition: Home Clinical Impression: Minor head injury without loss of consciousness Qualifiers: Encounter type: initial encounter Qualified Code(s): S09.90XA - Unspecified injury of head, initial encounter Condition: Stable Prescriptions: No Action furosemide 20 mg tablet 40 mg PO DAILY PRN (Reason: edema) Qty: 180 0RF levothyroxine 50 mcg tablet 50 mcg PO DAILY Qty: 90 0RF losartan 50 mg tablet 50 mg PO DAILY Qty: 90 0RF metformin 500 mg tablet extended release 24 hr 1,000 mg PO DAILY Qty: 180 0RF metoprolol tartrate 50 mg tablet 50 mg PO BID Qty: 180 0RF potassium chloride 10 mEq tablet extended release 10 meq PO DAILY Qty: 90 0RF rosuvastatin [Crestor] 40 mg tablet 40 mg PO DAILY Qty: 90 0RF Trulicity 0.75 mg/0.5 mL pen injector 0.75 mg SUBCUT .weekly Qty: 8 4RF Rx Instructions: 340B venlafaxine [Effexor XR] 75 mg capsule,extended release 24hr 75 mg PO QAM Qty: 90 0RF (DME) nebulizer accessories Kit See Rx Instructions .Route Qty: 1 0RF Rx Instructions: As directed (DME) compressor, for nebulizer Device See Rx Instructions .Route Qty: 1 0RF Rx Instructions: As directed albuterol sulfate 2.5 mg /3 mL (0.083 %) solution for nebulization 2.5 mg inhalation QID PRN (Reason: shortness of breath or wheezing) Qty: 75 0RF prednisone 20 mg tablet 20 mg PO BID Qty: 10 0RF doxycycline hyclate 100 mg tablet 100 mg PO BID Qty: 14 0RF aspirin 81 mg tablet,delayed release (DR/EC) 81 mg PO DAILY 0RF albuterol sulfate [Ventolin HFA] 90 mcg/actuation HFA aerosol inhaler 2 inh INHALATION TID 0RF cholecalciferol (vitamin D3) 1,000 unit Capsule 1,000 unit PO DAILY 0RF Centrum Silver 1 tab PO DAILY 0RF Fish Oil 1,000 mg PO BID 0RF Zyrtec 10 mg PO DAILY 0RF Discharge Orders: Discharge ED (Routine); Ordered 09/10/21 Ordered By: Radha Trent Referrals: Andrzej Grey, SYSTEM PROGRAMMER-C [Primary Care Provider] - Patient Instructions: Head Injury (ED) Activity Restrictions/Additional Instructions: As we discussed monitor symptoms closely at home. You need to return to the emergency department for severe headache, trouble walking/ambulating/problems with gait, visual changes, numbness or weakness to your arms or legs, altered mental status, repetitive episodes of vomiting, or any other concerns you may have. 

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
== END 2021-09-10 11:50 | disposition home or self-care (01) ==
PROVIDERS: Emergency Provider Physician Assistant; PCP Nurse Practitioner
DX: S09.8XXA Other specified injuries of head, initial encounter (principal); W07.XXXA Fall from chair, initial encounter
CPT/HCPCS: 70450; 72125; 99282

== ENCOUNTER → 2021-11-26 10:35 | Outpatient (BNVA) | payer MEDICARE, OTHER, SELFPAY | PROVIDERS: PCP Nurse Practitioner; Visit Provider Nurse Practitioner | DX: I10 Essential (primary) hypertension (principal); E11.65 Type 2 diabetes mellitus with hyperglycemia; F41.9 Anxiety disorder, unspecified | CPT/HCPCS: 80053; 83036; 84443 ==

== ENCOUNTER 2021-12-11 18:59 | Emergency (ER) | payer MEDICARE, OTHER, SELFPAY ==
[2021-12-11 19:23] VITALS: BP 159/94; PULSE 69; RESP 16; TEMP 36.1; O2SAT 97
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
[2021-12-11 22:01] VITALS: BP 148/105; PULSE 69; RESP 19; TEMP 37.1; O2SAT 95
== END 2021-12-11 23:50 | disposition home or self-care (01) ==
PROVIDERS: Emergency Provider Physician Assistant; PCP Nurse Practitioner
DX: S13.4XXA Sprain of ligaments of cervical spine, initial encounter (principal); M54.6 Pain in thoracic spine; Z79.899 Other long term (current) drug therapy; Z79.84 Long term (current) use of oral hypoglycemic drugs; Z79.82 Long term (current) use of aspirin; E11.22 Type 2 diabetes mellitus with diabetic chronic kidney disease; I12.9 Hypertensive chronic kidney disease with stage 1 through stage 4 chronic kidney disease, or unspecified chronic kidney disease; N18.30 Chronic kidney disease, stage 3 unspecified; Z85.038 Personal history of other malignant neoplasm of large intestine; V89.2XXA Person injured in unspecified motor-vehicle accident, traffic, initial encounter
CPT/HCPCS: 70450; 72125; 72128; 99283

== ENCOUNTER 2022-01-12 06:00 | Outpatient (RCR) | payer MEDICARE, OTHER, SELFPAY | END 2022-02-10 23:59 | disposition home or self-care (01) | LOC: TPT 06:00 | PROVIDERS: PCP Nurse Practitioner; Referring Provider Nurse Practitioner; Visit Provider Nurse Practitioner | DX: M51.24 Other intervertebral disc displacement, thoracic region (principal) | CPT/HCPCS: 97110; 97162 ==

== ENCOUNTER 2022-01-27 12:37 | Outpatient (CLI) | payer MEDICARE, OTHER, SELFPAY ==
--- NOTE | 2022-01-27 13:00 | CT_ITS ---
WS: [id number] CT ABDOMEN PELVIS TECHNIQUE: Noncontrast CT of the abdomen and pelvis with coronal and sagittal reformatted images. CLINICAL INFORMATION: Z85.038 - Personal history of other malignant neoplasm of... COMPARISON: CT abdomen pelvis May 07, 2020 DLP: 1238.[address] scans at [facility] use at least one of these dose optimization techniques: automated e xposure control; mA and/or kV adjustment per patient size (includes targeted exams where dose is matc hed to clinical indication); or iterative reconstruction. FINDINGS:Distended stomach with air-fluid levels with fluid products. Diffuse abnormal transmural enh ancing gastric wall thickening. This results in luminal narrowing and mild gastric outlet obstruction .Diffuse induration in the upper abdominal peritoneum suspicious for peritoneal carcinomatosis. Diffu se transmural gastric thickening worse involving the antrum and pylorus. Diffuse nodularity in the up per abdominal peritoneum about the stomach suspicious for peritoneal carcinomatosis. Largest nodule m easures 10 mm. Small amount of fluid in the rose mary hepatis. Small amount of perihepatic and perisplenic fluid. Small amount of fluid in the LEFT upper quadrant. Small amount of free fluid in the pelvis. Prior postoperative changes LEFT hemicolectomy with anastom osis in the LEFT upper quadrant. Diffuse fatty infiltration of the liver. Mild hepatomegaly. Calcifie d granuloma RIGHT lower lobe. Tiny bilateral pleural effusions LEFT greater than RIGHT. Partially vis ualized nodule in the RIGHT middle lobe measuring 5 mm. Hepatic granulomas. Splenic granulomas. Fatty atrophy of the pancreas. Adrenal glands are normal. No hydronephrosis in either kidney. Normal caliber abdominal aorta. Aortic calcification. Tiny gallstone. Prior hysterectomy. Small fat-containing supra umbilical hernia. CT/CT abdomen pelvis wo con [id number] IMPRESSION: Contrast not administered 1. Diffuse transmural gastric thickening with luminal narrowing worse involvin g the antrum and pylorus. Air-fluid level in the stomach with mild obstruction. Findings suspicious for neoplasm or metastatic disease. 2. Diffuse surrounding suspected peritoneal carcinomatosis in the upper abdomi nal surrounding peritoneum about the stomach. Associated nodularity with larges t nodule measuring 10 mm. 3. Small amount of perihepatic and perisplenic fluid. Small amount of fluid in the LEFT upper quadrant extending into the LEFT pericolic gutter. Small amount of free fluid in the pelvis. 4. Tiny LEFT greater than RIGHT pleural effusions. 5. Partially visualized nodule in the RIGHT middle lobe measuring 5 mm. 6. Prior LEFT hemicolectomy and hysterectomy. 7. Tiny calcified gallstone in the dependent gallbladder. Small amount of flui d in the gallbladder fossa most likely related to hepatic congestion. 8. Mild hepatomegaly. Notified JENNIFER Love at 01/27/2022 2:10 PM.
[2022-01-27 13:16] LABS: Basophils % 0.4 %; Eosinophils # 0.2 10^3/uL (0.0-0.8); Eosinophils % 1.8 %; Hematocrit 44.4 % (37.0-47.0); Hemoglobin 13.8 g/dL (11.5-15.3); Lymphocytes # 1.5 10^3/uL (0.8-4.8); Lymphocytes % 14.5 %; Mean Corpuscular HGB Conc 31.1 g/dL (30.0-36.0); Mean Corpuscular Hemoglobin 27.4 pg (28.0-34.0); Mean Corpuscular Volume 88.1 fl (81-99); Mean Platelet Volume 10.8 fL (7.4-10.4); Monocytes # 0.9 10^3/uL (0.2-0.9); Monocytes % 8.5 %; Neutrophils # 7.45 10^3/uL (1.8-7.7); Neutrophils % 74.4 %; Nucleated Red Blood Cells % 0 %; Platelet Count 385 10^3/cmm (130-400); Red Blood Count 5.04 10^6/uL (4.1-5.3); Red Cell Distribution Width 14.6 % (12.1-15.1)
[2022-01-27 13:24] LABS: Blood Urine Neg (Negative); Glucose Urine UA Norm (Normal); Ketones Urine 1+ (Negative); Nitrate Urine Negative (Negative); Protein Urine 1+ (Negative); Urine Appearance Clear (CLEAR); Urine Color Yellow (Yellow); pH Urine 5 (5-7)
[2022-01-27 13:25] LABS: Add Urine Microscopic? YES; Bilirubin Urine 1+ (Negative); Leukocyte Esterase Urine 1+ (Negative); Urobilinogen Urine 1 mg/dL (Negative)
[2022-01-27 13:30] LABS: RBC Urine 0-4 /hpf (0-2); Squamous Epithelial Cell Urine 0-4 /hpf (0-5)
[2022-01-27 13:31] LABS: Add Urine Culture? Yes; Bacteria Urine 1+ /hpf; Calcium Oxalate Crystals Urine 2 /hpf; Hyaline Casts Urine 0-4 /lpf
[2022-01-27 13:32] LABS: Alanine Aminotransferase 12 U/L (0-33); Albumin Level 3.6 g/dL (3.5-5.2); Alkaline Phosphatase 103 U/L (35-105); Anion Gap 15.4 (5-19); Aspartate Amino Transferase 19 U/L (0-32); Blood Urea Nitrogen 14 mg/dL (8-23); Calcium 9.6 mg/dL (8.5-10.5); Carbon Dioxide 29 mmol/L (22-29); Chloride 99 mmol/L (98-107); Globulin 2.3 g/dL (1.3-4.6); Glucose 110 mg/dL (65-115); Osmolality Calculated 289 mOsm/kg (285-295); Potassium 4.4 mmol/L (3.5-5.1); Sodium 139 mmol/L (136-145); Total Bilirubin 0.3 mg/dL (0.15-1.2); Total Protein 5.9 g/dL (6.6-8.7)
== END 2022-01-27 12:38 | disposition home or self-care (01) ==
LOC: RAD 12:38
PROVIDERS: PCP Nurse Practitioner; Visit Provider Nurse Practitioner
DX: Z85.038 Personal history of other malignant neoplasm of large intestine (principal); R16.0 Hepatomegaly, not elsewhere classified; K80.80 Other cholelithiasis without obstruction; Z90.49 Acquired absence of other specified parts of digestive tract; Z90.710 Acquired absence of both cervix and uterus; J90 Pleural effusion, not elsewhere classified
CPT/HCPCS: 74176; 80053; 81001; 85025; 87086

== ENCOUNTER 2022-01-29 18:50 | Emergency (ER) | payer MEDICARE, OTHER, SELFPAY ==
[2022-01-29 19:06] VITALS: BP 123/84; PULSE 85; RESP 20; TEMP 37.2; O2SAT 94; BMI 42.6
[2022-01-29] MEDS: tetracaine 0.5% Op Soln 4 mL Btl 1 DROP EYE-RIGHT (22:05)
--- NOTE | 2022-01-29 23:08 | ED_ITS ---
HPI - Eye Problem General: Chief complaint: Eye Problems Stated complaint: Eye Pain due to Shots in them today Time Seen by Provider: 01/29/22 22:04 Source: patient and family History of Present Illness: 76-year-old lady with macular degeneration. She received injections for this in the right eye today. She shut her eyes on the way home, and dozed off, and when she awoke, noticed that she had intense pain to the right eye. There is mild blurred vision. She has not had this severe symptoms after injection prior. There is no drainage. No bleeding. No increased redness. chief complaint: eye pain Onset (ago): hour(s) Onset description: sudden Duration: constant and improved Location: right eye Eye Symptoms: burning and pain Place: other Mechanism: other Severity: moderate If Pain, Quality: burning Context: recent eye procedure Associated symptoms: Denies cough, fever(s), headache(s), nausea, neck pain, nu mbness, rhinorrhea, short of breath or vomiting Treatments Prior to Arrival: none Review of Systems Const: Denies: fever(s) ENMT: Denies: throat pain Card: Denies: chest pain Resp: Denies: dyspnea GI: Denies: nausea or vomiting Musc: Denies: neck pain Neuro: Denies: headache(s) PFS ED PFSH: Medical History Adult onset hypothyroidism Anxiety Chronic kidney disease, stage 3 Constipation, slow transit Enrolled in chronic care management Essential (primary) hypertension History of colon cancer Colon resection 2017, CEA Apr 2020 History of colon polyps Follow-up colonoscopy in 3 years Hypercholesteremia Hypokalemia Seasonal allergies Type 2 diabetes mellitus with hyperglycemia, without long-term current use of insulin Surgical History History of colonoscopy Colon cancer splenic flexure 06/2019: Cecum: Normal Ascending colon: 1 cm submucous mass consistent with a lipoma Transverse colon: 5 mm sessile polyp x4 removed with cold biopsy forceps At the colocolic anastomosis status post left hemicolectomy there was polypoid mucosa which was removed using a hot snare Sigmoid colon: Normal Rectum: 5 mm sessile polyp removed with cold biopsy forceps, internal hemorrhoids on retroflexion BERNADETTE: Internal hemorrhoids Follow-up colonoscopy 1 year History of hemicolectomy Laparoscopic left hemicolectomy 2019 History of hysterectomy Family History Other Cancer Heart disease Hypertension Social History Smoking and tobacco status: never smoked Second hand smoke exposure: No Smoking risk assessment/counseling performed?: No Alcohol intake: never Desire information about alcohol rehabilitation?: No Counseling given: No Desire information about substance/drug rehabilitation?: No Counseling given: No Adopted: No Caregiver/support person: No Lives independently: Yes Household members: spouse Housing: House Marital status: Number of children: 2 service: No Current occupational status: unemployed and retired History of recent travel: No Leisure activites: other Leisure activities details: Camping Current gender identity: Female Physical Exam HENMT: COMMON NORMALS: normocephalic, atraumatic and Normal external nose present HEAD & SCALP: normocephalic and atraumatic FACE & SINUS: normal facial exam and face symmetric NOSE: Normal external nose present Eye: COMMON NORMALS: Equal, round and reactive pupils present and EOMs intact bilaterally VISUAL ACUITY: Yes visual acuity right eye (Intact) ALIGNMENT: Yes alignment normal EYELID: eyelids normal CONJUNCTIVA: Yes conjunctival abnormal positive right conjunctival injection (Mild) PUPIL: Yes Equal, round and reactive pupils present DIRECT OPHTHALMOSCOPY: Yes anterior chamber normal Chest: CHEST: Yes Symmetrical chest wall rise Resp: COMMON NORMALS: normal respiratory effort Cardio: COMMON NORMALS: regular rate and regular rhythm RATE: regular rate RHYTHM: regular rhythm Neuro: LILA COMA SCALE: document GCS findings [place] coma scale eye opening: Spontaneous [place] coma scale verbal response: Orientated [place] coma scale motor response: Obey commands Lila coma scale total score: 15 CRANIAL NERVES: Yes CN normal except as noted Course Vital Signs: Vital signs: Vital Signs Temperature 98.9 F 01/29/22 19:06 Pulse Rate 85 01/29/22 19:06 Respiratory Rate 20 H 01/29/22 19:06 Blood Pressure 123/84 01/29/22 19:06 Pulse Oximetry 94 01/29/22 19:06 Oxygen Delivery Me thod 01/29/22 19:06 MDM - Eye Problem Medical Decision Making Pain improved essentially immediately with tetracaine application. Evidently, we do not have a Ruiz lamp in the ER currently, and cannot further examine her eye. Obviously this is not angle-closure glaucoma, as she improved significantly with tetracaine nearly immediately. She will be placed on Toradol drops for pain, and asked to follow-up with her surgeon on Tuesday Discharge Plan Discharge Patient Disposition: Home Clinical Impression: Corneal abrasion Condition: Stable Prescriptions: No Action levothyroxine 50 mcg tablet 50 mcg PO DAILY Qty: 90 0RF rosuvastatin [Crestor] 40 mg tablet 40 mg PO DAILY Qty: 90 0RF (DME) nebulizer accessories Kit See Rx Instructions .Route Qty: 1 0RF Rx Instructions: As directed (DME) compressor, for nebulizer Device See Rx Instructions .Route Qty: 1 0RF Rx Instructions: As directed albuterol sulfate 2.5 mg /3 mL (0.083 %) solution for nebulization 2.5 mg inhalation QID PRN (Reason: shortness of breath or wheezing) Qty: 75 0RF methocarbamol 750 mg tablet 750 mg PO .2 times day Qty: 60 0RF Hold Instructions: Doctor's Order furosemide 20 mg tablet 40 mg PO DAILY PRN (Reason: edema) Qty: 180 0RF losartan 50 mg tablet 50 mg PO DAILY Qty: 90 0RF metformin 500 mg tablet extended release 24 hr 1,000 mg PO DAILY Qty: 180 0RF Hold Instructions: Doctor's Order metoprolol tartrate 50 mg tablet 50 mg PO BID Qty: 180 0RF potassium chloride 10 mEq tablet extended release 10 meq PO DAILY Qty: 90 0RF Trulicity 0.75 mg/0.5 mL pen injector 0.75 mg SUBCUT .weekly Qty: 8 4RF Rx Instructions: getting from manufacture venlafaxine [Effexor XR] 75 mg capsule,extended release 24hr 75 mg PO QAM Qty: 90 0RF famotidine [Pepcid] 20 mg tablet 20 mg PO BID Qty: 60 0RF scopolamine base 1 mg over 3 days patch 3 day 1 patch transdermal Q3D PRN (Reason: nausea and vomiting) Qty: 4 1RF aspirin 81 mg tablet,delayed release (DR/EC) 81 mg PO DAILY albuterol sulfate [Ventolin HFA] 90 mcg/actuation HFA aerosol inhaler 2 inh INHALATION TID cholecalciferol (vitamin D3) 1,000 unit Capsule 1,000 unit PO DAILY Centrum Silver 1 tab PO DAILY Fish Oil 1,000 mg PO BID Zyrtec 10 mg PO DAILY Celebrex 100 mg capsule 100 mg PO BID PRN (Reason: pain) Qty: 20 0RF Hold Instructions: Doctor's Order Discharge Orders: Discharge ED (Routine); Ordered 01/29/22 Ordered By: Salas Singleton Referrals: Andrzej Grey, SOFTWARE LICENSING SPECIALIST-C [Primary Care Provider] - Patient Instructions: Corneal Abrasion (ED) Activity Restrictions/Additional Instructions: Use the drops you were dispensed every 6 hours while awake for pain. Return for redness, loss of vision, discharge from the eye, fever, any other concerning symptoms. Call your surgeon on Tuesday for further advice. 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
[2022-01-29] MEDS: ketorolac 0.5% Op 5 mL Btl 1 DROP EYE-RIGHT (23:11)
== END 2022-01-29 23:26 | disposition home or self-care (01) ==
PROVIDERS: Emergency Provider Emergency Medicine; PCP Nurse Practitioner
DX: S05.00XA Injury of conjunctiva and corneal abrasion without foreign body, unspecified eye, initial encounter (principal); X58.XXXA Exposure to other specified factors, initial encounter; Z79.899 Other long term (current) drug therapy; Z79.84 Long term (current) use of oral hypoglycemic drugs; Z79.82 Long term (current) use of aspirin; I12.9 Hypertensive chronic kidney disease with stage 1 through stage 4 chronic kidney disease, or unspecified chronic kidney disease; E11.22 Type 2 diabetes mellitus with diabetic chronic kidney disease; N18.30 Chronic kidney disease, stage 3 unspecified; Z85.038 Personal history of other malignant neoplasm of large intestine
CPT/HCPCS: 99283

== ENCOUNTER → 2022-02-01 10:50 | Outpatient (BNVA) | payer MEDICARE, OTHER, SELFPAY | PROVIDERS: PCP Nurse Practitioner; Visit Provider Surgery | DX: K21.9 Gastro-esophageal reflux disease without esophagitis (principal); R11.0 Nausea; K31.89 Other diseases of stomach and duodenum | CPT/HCPCS: 99213 ==

== ENCOUNTER 2022-02-02 10:37 | Outpatient (CLI) | payer MEDICARE, OTHER, SELFPAY ==
--- NOTE | 2022-02-02 10:44 | MM_ITS ---
WS: [id number] SCREENING DIGITAL BREAST TOMOSYNTHESIS MAMMOGRAM WITH CAD HISTORY: Screening. COMPARISON: 05/28/2011 and 05/04/2011 Bilateral CC and MLO with tomosynthesis and synthetic mammography submitted. Computer aided detection analyzed. Breast composition: There are scattered areas of fibroglandular density. 5 mm nodule with central cecilia cification is new in the LEFT breast near 11:00 at a middle depth. There are additional benign calcif ications with are stable. Additional slightly lobulated 5 mm mass in the medial LEFT breast is stable . MM/[place] [id number] IMPRESSION: BI-RADS: 0-Incomplete: Need additional imaging evaluation FOLLOW UP: Need Additional Imaging LEFT breast: Spot compression views (CC and MLO). True ML. Ultrasound to follow if abnormality persists.
== END 2022-02-02 10:38 | disposition home or self-care (01) ==
LOC: RAD 10:38
PROVIDERS: PCP Nurse Practitioner; Visit Provider Nurse Practitioner
DX: Z12.31 Encounter for screening mammogram for malignant neoplasm of breast (principal)
CPT/HCPCS: 77063; 77067

== ENCOUNTER 2022-02-03 08:55 | Day surgery (SDC) | payer MEDICARE, OTHER, SELFPAY ==
[2022-02-02 09:50] VITALS: BMI 42.6
[2022-02-03 09:17] VITALS: BP 134/69; PULSE 90; RESP 20; TEMP 36.1; O2SAT 96
[2022-02-03] MEDS: sodium chloride 0.9% 1,000 ML 30 ML IV (09:28)
--- NOTE | 2022-02-03 10:12 | W.PM.OPSUD ---
Surgery/Procedure H&P Update DATE OF PROCEDURE: February 03, 2022 DATE H&P PERFORMED: 02/01/22 PREOP DIAGNOSIS: Hx colon cancer PLANNED PROCEDURE: Operation Date: 02/03/22 10:15 Proposed Procedures p EGD 00110,K31.89,K21.9(Not Applicable) - Darrell Villareal DO
--- NOTE | 2022-02-03 10:53 | ANES.PREANE2 ---
Pre-Anesthetic Assessment Height/Weight: Height 1.5 m Weight 95.708 kg Temp Pulse Resp BP Pulse Ox O2 Del Method 97 F L 90 20 H 134/69 96 02/03/22 09:17 02/03/22 09:17 02/03/22 09:17 02/03/22 09:17 02/03/22 09:17 02/03/22 09:17 Preop Diagnosis: Hx colon cancer Operation Date: 02/03/22 10:15 Proposed Procedures p EGD 70968,K31.89,K21.9(Not Applicable) - Darrell Villareal DO Familial anesthetic complications: None Was Beta Johnson taken within 24 hours: Yes Was Clonidine taken within 24 hours: N/A Last intake: Intake Last Liquid Date 02/02/22 Last Liquid Time 22:00 Last Solid Date 01/27/22 Last Solid Time 22:00 Last Intake: 23:00 Social No alcohol and No tobacco Exam alert, oriented x 3, clear to auscultation bilaterally and regular rate & rhythm Airway Submandibular: within normal limits Cervical ROM: within normal limits Mallampati: Class II Dentition: full History/ROS No significant history except as noted and No significant complaints Pulmonary None reported Has an inhaler. Used 6 months ago CV/HEM Hypertension and None reported None reported Hepatic None reported Fatty liver GI Gastroesophageal Reflux Disease No GERD this AM Metabolic Diabetes Mellitus, Hyperlipidemia and Thyroid Disease [facility]/skel Lower Back Pain Neuropsych None reported Anesthetic Plan ASA status: 2 Anesthesia: Anesthesia Evaluation, General and MAC Risk of > 500 ml blood loss (7ml/kg in children): No Medications/Allergies Home Medications Medication Instructions Recorded Confirmed Last Taken Type Centrum Silver 1 tab PO DAILY 06/18/19 02/02/22 02/02/22 History Zyrtec 10 mg PO DAILY 06/18/19 02/02/22 02/02/22 History aspirin 81 mg tablet,delayed 81 mg PO DAILY 06/18/19 02/02/22 06/18/19 History release cholecalciferol (vitamin D3) 25 1,000 unit PO DAILY 06/18/19 02/02/22 02/02/22 History mcg (1,000 unit) capsule levothyroxine 50 mcg tablet 50 mcg PO DAILY #90 tabs 08/05/21 02/02/22 02/02/22 Rx rosuvastatin 40 mg tablet (Crestor) 40 mg PO DAILY #90 tabs 08/05/21 02/02/22 02/02/22 Rx compressor, for nebulizer #1 ea 09/02/21 02/01/22 02/02/22 Rx nebulizer accessories #1 ea 09/02/21 02/01/22 02/02/22 Rx Trulicity 0.75 mg/0.5 mL 0.75 mg (0.5 mL) SUBCUT .weekly #8 11/26/21 02/02/22 01/31/22 Rx subcutaneous pen injector mL (dulaglutide) furosemide 20 mg tablet 40 mg PO DAILY PRN edema #180 tabs 11/26/21 02/02/22 02/02/22 Rx losartan 50 mg tablet 50 mg PO DAILY #90 tabs 11/26/21 02/02/22 02/02/22 Rx metformin 500 mg tablet,extended 1,000 mg PO DAILY #180 tabs 11/26/21 02/02/22 02/02/22 Rx release 24 hr metoprolol tartrate 50 mg tablet 50 mg PO BID #180 tabs 11/26/21 02/02/22 02/02/22 Rx potassium chloride 10 mEq 10 meq PO DAILY #90 tabs 11/26/21 02/02/22 02/02/22 Rx tablet,extended release venlafaxine 75 mg capsule,extended 75 mg PO QAM #90 caps 11/26/21 02/02/22 02/02/22 Rx release 24 hr (Effexor XR) famotidine 20 mg tablet (Pepcid) 20 mg PO BID #60 tabs 01/27/22 02/02/22 02/02/22 Rx scopolamine base 1 mg over 3 days 1 patch transdermal Q3D PRN nausea 01/28/22 02/02/22 01/31/22 Rx transdermal patch and vomiting #4 ea pantoprazole 40 mg tablet,delayed 40 mg PO BID #60 tabs 02/03/22 Unknown Rx release (Protonix) Allergies Allergy/AdvReac Type Severity Reaction Status Date / Time DEON Inhibitors Allergy ADR-Cough Verified 02/02/22 09:46 lactulose Allergy ADR-Nausea Verified 02/02/22 09:46 Sulfa (Sulfonamide Allergy Unknown Verified 02/02/22 09:46 Antibiotics) Current Medications Generic Name Dose Route Start Last Admin Trade Name Freq PRN Reason Stop Dose Admin Sodium Chloride 1,000 mls @ 30 mls/hr 02/03/22 09:00 02/03/22 09:28 Sodium Chloride 0.9% IV 02/04/22 08:59 30 mls/hr .Q24H HIRA Administration PFSH Anesthesia Medical History Adult onset hypothyroidism Anxiety Chronic kidney disease, stage 3 Constipation, slow transit Enrolled in chronic care management Essential (primary) hypertension History of colon cancer Colon resection 2017, CEA Apr 2020 History of colon polyps Follow-up colonoscopy in 3 years Hypercholesteremia Hypokalemia Seasonal allergies Type 2 diabetes mellitus with hyperglycemia, without long-term current use of insulin Surgical History History of colonoscopy Colon cancer splenic flexure 06/2019: Cecum: Normal Ascending colon: 1 cm submucous mass consistent with a lipoma Transverse colon: 5 mm sessile polyp x4 removed with cold biopsy forceps At the colocolic anastomosis status post left hemicolectomy there was polypoid mucosa which was removed using a hot snare Sigmoid colon: Normal Rectum: 5 mm sessile polyp removed with cold biopsy forceps, internal hemorrhoids on retroflexion BERNADETTE: Internal hemorrhoids Follow-up colonoscopy 1 year History of hemicolectomy Laparoscopic left hemicolectomy 2018 History of hysterectomy Family History Other Cancer Heart disease Hypertension Social History Smoking and tobacco status: never smoked Second hand smoke exposure: No Smoking risk assessment/counseling performed?: No Alcohol intake: never Desire information about alcohol rehabilitation?: No Counseling given: No Desire information about substance/drug rehabilitation?: No Counseling given: No Adopted: No Caregiver/support person: No Lives independently: Yes Household members: spouse Housing: House Marital status: Number of children: 2 service: No Current occupational status: unemployed and retired History of recent travel: No Leisure activites: other Leisure activities details: Camping Current gender identity: Female Data Anesthesia Cardiac Studies: No Data to Display
[2022-02-03] MEDS: famotidine 20 mg/2 mL INJ IVP (11:13)
[2022-02-03 11:40] VITALS: BP 125/77; PULSE 95; TEMP 36.3
[2022-02-03 11:50] VITALS: BP 120/80; PULSE 92; RESP 18; TEMP 36.5; O2SAT 92
--- NOTE | 2022-02-03 13:06 | ANE.PACU2 ---
Inpatient post-anesthesia follow up: Airway intact: Yes Vital signs: Temperature 97.7 F Pulse Rate 92 Respiratory Rate 18 Blood Pressure 120/80 Pulse Oximetry 92 Oxygen Delivery Me thod Room Air Oxygen Flow Rate Fraction of Inspir ed Oxygen Hydration adequate: Yes Nausea and vomiting: No Pain level: 1 Mental status: Baseline
== END 2022-02-03 12:13 | disposition home or self-care (01) ==
PROVIDERS: PCP Nurse Practitioner; Visit Provider Surgery
PROC: 0DJ08ZZ Inspection of Upper Intestinal Tract, Via Natural or Artificial Opening Endoscopic (ICD-10-PCS; CPT 43235; principal; 2022-02-03 10:15)
DX: R19.00 Intra-abdominal and pelvic swelling, mass and lump, unspecified site (principal); R10.9 Unspecified abdominal pain; R11.0 Nausea; K21.9 Gastro-esophageal reflux disease without esophagitis; I12.9 Hypertensive chronic kidney disease with stage 1 through stage 4 chronic kidney disease, or unspecified chronic kidney disease; N18.30 Chronic kidney disease, stage 3 unspecified; E11.22 Type 2 diabetes mellitus with diabetic chronic kidney disease; E11.65 Type 2 diabetes mellitus with hyperglycemia; E78.00 Pure hypercholesterolemia, unspecified; Z79.899 Other long term (current) drug therapy; Z79.84 Long term (current) use of oral hypoglycemic drugs; Z85.038 Personal history of other malignant neoplasm of large intestine; Z88.2 Allergy status to sulfonamides
CPT/HCPCS: 43239; 88305; 96374; J2405; J2704; J3490; J7030